=== PATIENT | female | born 1990 | race American Indian/Alaskan Native ===

== ENCOUNTER 2017-12-07 05:32 | Emergency (ER) | payer SELFPAY ==
[2017-12-07 05:37] VITALS: BP 147/97
[2017-12-07] MEDS ORDERED: TORADOL IM ONE (06:03)
[2017-12-07] MEDS ORDERED: NORCO 7.5/325 PO ONE (07:37)
[2017-12-07] MEDS ORDERED: LIDOCAINE VISCOUS 2% MM ONE (07:39)
--- NOTE | 2017-12-07 07:41 | Emergency Department Report ---
ED General Adult HPI - General Chief complaint: Sore Throat Stated complaint: CHEST PAIN,SORE THROAT,STOMACH PAIN Time Seen by Provider: 12/07/17 07:22 Source: patient Mode of arrival: Ambulatory Limitations: No Limitations - History of Present Illness Initial comments: 27-year-old -[place] female comes in today for complaint of bilateral breasts tenderness with swelling and discharge status post nipple piercing. Patient reports that she's had her nipples pierced for 9 years and went to change her nipple piercing and she started to have pain and swelling in discharge. She reports that this all started on . She also complains of sore throat that started today. Patient reports that she is nauseated and having chest burning and epigastric burning. She denies being around any sick contact. She's been taking ibuprofen and Aleve [id number] without much relief. Patient reports no past medical history currently takes no medications on a daily basis and has no known drug allergies. -: days(s) (4 for nipple pain , today for throat pain) Severity scale (0 -10): 10 Quality: burning, stabbing, aching Consistency: constant Improves with: none Worsens with: movement Associated Symptoms: loss of appetite, nausea/vomiting. denies: confusion, chest pain, cough - Related Data Previous Rx's Medication Instructions Recorded Last Taken Type Amoxicillin/K Clav Tab [Augmentin 1 tab PO Q12HR #20 tab 12/07/17 Unknown Rx 875 mg] Ibuprofen [Motrin 800 MG tab] 800 mg PO Q8HR PRN #30 tablet 12/07/17 Unknown Rx traMADol [Ultram 50 MG tab] 50 mg PO Q4HR PRN #20 tablet 12/07/17 Unknown Rx Allergies Allergy/AdvReac Type Severity Reaction Status Date / Time No Known Allergies Allergy Verified 12/07/17 07:25 ED Review of Systems ROS: Stated complaint: CHEST PAIN,SORE THROAT,STOMACH PAIN Other details as noted in HPI Constitutional: denies: chills, fever Eyes: denies: eye pain, eye discharge, vision change ENT: throat pain Respiratory: denies: cough, shortness of breath, wheezing Cardiovascular: chest pain (epigastric and sternal burning ) Endocrine: no symptoms reported Gastrointestinal: nausea Genitourinary: denies: urgency, dysuria, discharge Musculoskeletal: denies: back pain, joint swelling, arthralgia Skin: other (bilateral breast pain swelling or redness) Neurological: denies: headache, weakness, paresthesias Psychiatric: denies: anxiety, depression Hematological/Lymphatic: denies: easy bleeding, easy bruising ED Past Medical Hx - Past Medical History Previous Medical History?: No - Surgical History Past Surgical History?: No - Social History Smoking Status: Never Smoker Substance Use Type: None - Medications Home Medications: Home Medications Medication Instructions Recorded Confirmed Last Taken Type Amoxicillin/K Clav Tab [Augmentin 1 tab PO Q12HR #20 tab 12/07/17 Unknown Rx 875 mg] Ibuprofen [Motrin 800 MG tab] 800 mg PO Q8HR PRN #30 tablet 12/07/17 Unknown Rx traMADol [Ultram 50 MG tab] 50 mg PO Q4HR PRN #20 tablet 12/07/17 Unknown Rx ED Physical Exam - General Limitations: No Limitations General appearance: alert, in no apparent distress - Head Head exam: Present: atraumatic, normocephalic - Eye Eye exam: Present: normal appearance - Expanded ENT Exam Expanded Throat exam: Positive: tonsillar erythema, tonsillomegaly, tonsillar exudate - Neck Neck exam: Present: normal inspection - Respiratory Respiratory exam: Present: normal lung sounds bilaterally. Absent: respiratory distress - Cardiovascular Cardiovascular Exam: Present: regular rate, normal rhythm. Absent: systolic murmur, diastolic murmur, rubs, gallop - GI/Abdominal GI/Abdominal exam: Present: soft, normal bowel sounds - Extremities Exam Extremities exam: Present: normal inspection - Back Exam Back exam: Present: normal inspection - Neurological Exam Neurological exam: Present: alert, oriented X3 - Psychiatric Psychiatric exam: Present: normal affect, normal mood - Skin Skin exam: Present: other (bilateral breasts thin watery with mild opacity discharge from nipple left nipple streaking redness proximal tender to palpate areolas ) ED Course Vital Signs 12/07/17 12/07/17 05:32 05:53 Temperature 98.2 F 98.2 F Pulse Rate 85 82 Respiratory 18 18 Rate Blood Pressure 147/97 147/97 O2 Sat by Pulse 100 98 Oximetry ED Medical Decision Making - Medical Decision Making Patient's been evaluated by this provider fast track. Discussed the patient I will give her [place] for pain. Discussed patient with treat her with Augmentin which should treat the strep positive as well as a mastitis. Discussed the patient she needs to follow-up with her [employer] provider for further evaluation of her breasts. She can take ibuprofen or Tylenol for pain management. Critical care attestation.: If time is entered above; I have spent that time in minutes in the direct care of this critically ill patient, excluding procedure time. ED Disposition Clinical Impression: Strep throat, Mastitis in female Disposition: DC- TO HOME OR SELFCARE Is pt being admited?: No Does the pt Need Aspirin: No Condition: Stable Instructions: Strep Throat (ED), Mastitis (ED) Additional Instructions: Please complete antibiotics as prescribed. Take pain medication as prescribed. Please follow[facility]up with [facility] for further evaluation. Prescriptions: Amoxicillin/K Clav Tab [Augmentin 875 mg] 1 tab PO Q12HR #20 tab Ibuprofen [Motrin 800 MG tab] 800 mg PO Q8HR PRN #30 tablet PRN Reason: Pain traMADol [Ultram 50 MG tab] 50 mg PO Q4HR PRN #20 tablet PRN Reason: Pain Referrals: [facility] [Provider Group] - 3-5 Days Forms: Work/School Release Form(ED)
== END 2017-12-07 07:56 | disposition home or self-care (01) ==
LOC: ED 05:32
DX: N61.0 Mastitis without abscess (principal); J02.0 Streptococcal pharyngitis; R63.0 Anorexia; R11.2 Nausea with vomiting, unspecified
CPT/HCPCS: 87430; 93005; 93010; 96372; 99283; J1885

== ENCOUNTER 2018-04-27 12:08 | Emergency (ER) | payer SELFPAY ==
[2018-04-27 12:34] VITALS: BP 145/91
== END 2018-04-27 19:35 | disposition left against medical advice (07) ==
LOC: ED 12:08
DX: R07.9 Chest pain, unspecified (principal); R05 Cough; R50.9 Fever, unspecified; R09.81 Nasal congestion; Z53.21 Procedure and treatment not carried out due to patient leaving prior to being seen by health care provider
CPT/HCPCS: 93005; 93010

== ENCOUNTER 2018-09-17 19:30 | Emergency (ER) | payer MEDICAID, OTHER ==
[2018-09-17 19:44] VITALS: BP 111/69
[2018-09-17 20:39] LABS: HCG Qualitative,Urine Positive (Negative)
[2018-09-17 20:41] LABS: Bacteria,Urine 1+ /HPF (Negative); Bilirubin,Urine NEG (Negative); Blood,Urine NEG (Negative); Color,Urine Yellow (Yellow); Mucus,Urine 3+ /HPF; Urobilinogen,Urine < 2.0 mg/dL (<2.0)
--- NOTE | 2018-09-17 20:56 | Emergency Department Report ---
ED Abdominal Pain HPI - General Chief Complaint: Urogenital-Female Stated Complaint: DIZZINESS/VOMITING/VAG DISCHARGE Time Seen by Provider: 09/17/18 20:26 Source: patient Mode of arrival: Ambulatory Limitations: No Limitations - History of Present Illness Initial Comments: 28-year-old -Portuguese female presents to the emergency room for vaginal d ischarge, dizziness and nausea and vomiting and bilateral breast tenderness. Patient reports she sexually active with men 1 partner. She's had nausea. She's been able to eat. She's had vomiting Thursday and Thursday. She is 0. Patient reports that she had lower abdominal pain no longer has pain at this moment. MD Complaint: abdominal pain Radiation: epigastric Migration to: no migration Quality: aching Consistency: intermittent - Related Data Previous Rx's Medication Instructions Recorded Last Taken Type Amoxicillin/K Clav Tab [Augmentin 1 tab PO Q12HR #20 tab 12/07/17 Unknown Rx 875 mg] Ibuprofen [Motrin 800 MG tab] 800 mg PO Q8HR PRN #30 tablet 12/07/17 Unknown Rx traMADol [Ultram 50 MG tab] 50 mg PO Q4HR PRN #20 tablet 12/07/17 Unknown Rx Vits96/Iron Fum/Folic 1 each PO QDAY #90 tablet 09/18/18 Unknown Rx [ Tablet] metroNIDAZOLE [Flagyl] 500 mg PO Q8HR #21 tablet 09/18/18 Unknown Rx Allergies Allergy/AdvReac Type Severity Reaction Status Date / Time No Known Allergies Allergy Verified 04/27/18 12:32 ED Review of Systems ROS: Stated complaint: DIZZINESS/VOMITING/VAG DISCHARGE Other details as noted in HPI Comment: All other systems reviewed and negative Gastrointestinal: abdominal pain, nausea, vomiting ED Past Medical Hx - Past Medical History Previous Medical History?: No - Surgical History Past Surgical History?: No - Social History Smoking Status: Never Smoker Substance Use Type: None - Medications Home Medications: Home Medications Medication Instructions Recorded Confirmed Last Taken Type Amoxicillin/K Clav Tab [Augmentin 1 tab PO Q12HR #20 tab 12/07/17 Unknown Rx 875 mg] Ibuprofen [Motrin 800 MG tab] 800 mg PO Q8HR PRN #30 tablet 12/07/17 Unknown Rx traMADol [Ultram 50 MG tab] 50 mg PO Q4HR PRN #20 tablet 12/07/17 Unknown Rx Vits96/Iron Fum/Folic 1 each PO QDAY #90 tablet 09/18/18 Unknown Rx [ Tablet] metroNIDAZOLE [Flagyl] 500 mg PO Q8HR #21 tablet 09/18/18 Unknown Rx ED Physical Exam - General Limitations: No Limitations General appearance: alert, in no apparent distress - Head Head exam: Present: atraumatic, normocephalic - Eye Eye exam: Present: normal appearance - ENT ENT exam: Present: mucous membranes moist - Respiratory Respiratory exam: Present: normal lung sounds bilaterally. Absent: respiratory distress - Cardiovascular Cardiovascular Exam: Present: regular rate, normal rhythm. Absent: systolic murmur, diastolic murmur, rubs, gallop - GI/Abdominal GI/Abdominal exam: Present: soft, normal bowel sounds - External exam: Present: normal external exam Speculum exam: Present: vaginal discharge. Absent: vaginal bleeding Bi-manual exam: Present: normal bi-manual exam. Absent: cervical motion tendernes - Extremities Exam Extremities exam: Present: normal inspection - Neurological Exam Neurological exam: Present: alert, oriented X3 - Psychiatric Psychiatric exam: Present: normal affect, normal mood - Skin Skin exam: Present: warm, dry, intact, normal color. Absent: rash ED Course Vital Signs 09/17/18 19:39 Temperature 98 F Pulse Rate 107 H Blood Pressure 111/69 O2 Sat by Pulse 99 Oximetry ED Medical Decision Making - Radiology Data Radiology results: report reviewed FINAL REPORT PROCEDURE: US OB lt; = 14 WEEKS FETUS TECHNIQUE: Real-time transabdominal and transvaginal sonography of the uterus, placenta, amniotic fluid, adnexa, and fetus was performed with image documentation. Measurements were obtained to determine age/size. M-mode Doppler was used to document heartbeat. CPT 04951 HISTORY: positive test abdominal pain COMPARISON: No prior studies are available for comparison. FINDINGS: CRL: 13 mm, which corresponds to a gestational age of: 7 weeks, 4 days. Yolk Sac: Normal. Embryonic Cardiac Activity: 152 beats per minute Gestational Sac: Normal. Amniotic fluid: Normal. Cervix: Normal. Right Ovary: Normal. Left Ovary: Normal. Estimated delivery date: 05/02/2019 Uterus and adnexa: Normal. IMPRESSION: Single live intrauterine gestation at approximately 7 weeks 4 days. EDC by 05/02/2019 Transcribed By: [facility] Dictated By: BO DUEÑAS MD Electronically Authenticated By: BO DUEÑAS MD Signed Date/Time: 09/17/182339 DD/ 41 TD/TT: 09/17/182341 - Medical Decision Making Patient has been evaluated by this provider in fast track. HCG urine shows positive HCG quantitative and ultrasound OB has been ordered Patient has an intrauterine gestation. Patient is to follow-up with her [facility] doctor. Critical care attestation.: If time is entered above; I have spent that time in minutes in the direct care of this critically ill patient, excluding procedure time. ED Disposition Clinical Impression: BV (bacterial vaginosis) Qualifiers: Weeks of gestation: less than 8 weeks Qualified Code(s): Z3A.01 - Less than 8 weeks gestation of Disposition: DC-01 TO HOME OR SELFCARE Is pt being admited?: No Does the pt Need Aspirin: No Condition: Stable Instructions: (ED), Bacterial Vaginosis (ED) Additional Instructions: Please take antibiotics as prescribed. Please take vitamins as prescribed daily. Very importantly a follow-up with an sensory scientist. Prescriptions: metroNIDAZOLE [Flagyl] 500 mg PO Q8HR #21 tablet Vits96/Iron Fum/Folic [ Tablet] 1 each PO QDAY #90 tablet Referrals: [facility] [Primary Care Provider] - 3-5 Days Forms: STI Treatment and Prevention
--- NOTE | 2018-09-17 23:39 | Ultrasound Report ---
FINAL REPORT PROCEDURE: US OB <= 14 WEEKS FETUS TECHNIQUE: Real-time transabdominal sonography of the uterus, placenta, amniotic fluid, adnexa, and fetus was performed with image documentation. Measurements were obtained to determine age/size. M-mode Doppler was used to document heartbeat. CPT 01936 HISTORY: positive test abdominal pain COMPARISON: No prior studies are available for comparison. FINDINGS: CRL: 13 mm, which corresponds to a gestational age of: 7 weeks, 4 days. Yolk Sac: Normal. Embryonic Cardiac Activity: 152 beats per minute Gestational Sac: Normal. Amniotic fluid: Normal. Cervix: Normal. Right Ovary: Normal. Left Ovary: Normal. Estimated delivery date: 05/02/2019 Uterus and adnexa: Normal. IMPRESSION: Single live intrauterine gestation at approximately 7 weeks 4 days. EDC by US 05/02/2019
--- NOTE | 2018-09-17 23:40 | Ultrasound Report ---
FINAL REPORT PROCEDURE: US OB <= 14 WEEKS FETUS TECHNIQUE: Real-time transabdominal and transvaginal sonography of the uterus, placenta, amniotic fl uid, adnexa, and fetus was performed with image documentation. Measurements were obtained to determin e age/size. M-mode Doppler was used to document heartbeat. CPT 28754 HISTORY: positive test abdominal pain COMPARISON: No prior studies are available for comparison. FINDINGS: CRL: 13 mm, which corresponds to a gestational age of: 7 weeks, 4 days. Yolk Sac: Normal. Embryonic Cardiac Activity: 152 beats per minute Gestational Sac: Normal. Amniotic fluid: Normal. Cervix: Normal. Right Ovary: Normal. Left Ovary: Normal. Estimated delivery date: 05/02/2019 Uterus and adnexa: Normal. IMPRESSION: Single live intrauterine gestation at approximately 7 weeks 4 days. EDC by US 05/02/2019
== END 2018-09-18 00:16 | disposition home or self-care (01) ==
LOC: ED 19:30
DX: O23.591 Infection of other part of genital tract in pregnancy, first trimester (principal); B96.89 Other specified bacterial agents as the cause of diseases classified elsewhere; O21.9 Vomiting of pregnancy, unspecified; O26.891 Other specified pregnancy related conditions, first trimester; R42 Dizziness and giddiness; Z3A.01 Less than 8 weeks gestation of pregnancy
CPT/HCPCS: 36415; 76801; 76817; 81001; 81025; 84702; 87210; 87591

== ENCOUNTER 2019-03-28 15:51 | Outpatient (CLI) | payer MEDICAID ==
[2019-03-28 17:19] VITALS: BP 106/76
[2019-03-28] MEDS ORDERED: LACTATED RINGERS 1,000 ML ONE ×2 (17:40→19:34)
[2019-03-28 18:15] LABS: Bacteria,Urine 1+ /HPF (Negative); Bilirubin,Urine NEG (Negative); Blood,Urine NEG (Negative); Color,Urine Yellow (Yellow); Mucus,Urine 2+ /HPF; Urobilinogen,Urine < 2.0 mg/dL (<2.0)
== END 2019-03-28 21:14 | disposition home or self-care (01) ==
LOC: TRG 15:51
PROVIDERS: ATTEND Obstetrics & Gynecology
DX: O62.9 Abnormality of forces of labor, unspecified (principal); Z3A.34 34 weeks gestation of pregnancy
CPT/HCPCS: 81001; J7120; 96360; 96361